=== PATIENT | male | born 1945 | race Caucasian/White ===

== ENCOUNTER 2016-09-07 07:08 | Day surgery (SDC) | payer MEDICARE, BC ==
[~2016-09-07 07:08] MED LIST: GLUCOSAMINE CH1 EAC8 PO; IBUPROFEN200 M2 PO; MULTAQ400 M1 PO; OCUVITE EYE +1 EACH PO; PRADAXA150 M1 PO; VITAMIN D31000 UNI3 PO
[2016-09-08] MEDS ORDERED: LORTAB 5-325 M1 EAC1 PO (07:15)
[2016-09-08] MEDS ORDERED: COLACE100 M1 PO (07:15)
[2016-12-01] MEDS ORDERED: AUGMENTIN 500-1 EAC2 PO (08:48)
[2016-12-01] MEDS ORDERED: TYLENOL EXTRA500 M1 PO (08:48)
== END 2016-09-08 10:25 ==
LOC: SRG 07:08 → SHSB 07:11 → ORW 09:27 → BURN 11:08
PROC: 0HBLXZZ Excision of Left Lower Leg Skin, External Approach (ICD-10-PCS; principal; 2016-09-07)
PROC: 0HRLX74 Replacement of Left Lower Leg Skin with Autologous Tissue Substitute, Partial Thickness, External Approach (ICD-10-PCS; 2016-09-07)
DX: S81.802A Unspecified open wound, left lower leg, initial encounter (principal); I87.2 Venous insufficiency (chronic) (peripheral); C44.719 Basal cell carcinoma of skin of left lower limb, including hip; I10 Essential (primary) hypertension; E78.5 Hyperlipidemia, unspecified; G62.9 Polyneuropathy, unspecified; G47.30 Sleep apnea, unspecified; E66.01 Morbid (severe) obesity due to excess calories; I73.9 Peripheral vascular disease, unspecified; L97.929 Non-pressure chronic ulcer of unspecified part of left lower leg with unspecified severity; M47.9 Spondylosis, unspecified; M16.9 Osteoarthritis of hip, unspecified; N40.1 Benign prostatic hyperplasia with lower urinary tract symptoms; N13.8 Other obstructive and reflux uropathy; E78.00 Pure hypercholesterolemia, unspecified; I89.0 Lymphedema, not elsewhere classified; I49.5 Sick sinus syndrome; D69.6 Thrombocytopenia, unspecified; D72.819 Decreased white blood cell count, unspecified; I48.91 Unspecified atrial fibrillation; J30.9 Allergic rhinitis, unspecified; Z68.42 Body mass index [BMI] 45.0-49.9, adult; Z79.899 Other long term (current) drug therapy; Z87.891 Personal history of nicotine dependence; Z86.010 Personal history of colon polyps; Z95.0 Presence of cardiac pacemaker; Z98.49 Cataract extraction status, unspecified eye; Z96.642 Presence of left artificial hip joint; Z96.653 Presence of artificial knee joint, bilateral; Z98.890 Other specified postprocedural states
CPT/HCPCS: J0171; J1170; J1580; J3370